=== PATIENT | male | born 1975 | race Caucasian/White ===

== ENCOUNTER 2025-01-06 23:27 | Emergency (ER) | payer OTHER, SELFPAY ==
--- NOTE | 2025-01-06 23:42 | XR_ITS ---
Examination: Right shoulder 2 views TECHNIQUE: AP internal rotation Y-view right shoulder 2 views Examination time: January 06, 2025 10:52 PM INDICATIONS: Patient fell today with injury to the shoulder shoulder pain. FINDINGS: Anterior subcoracoid shoulder dislocation. No fracture IMPRESSION: Anterior subcoracoid shoulder dislocation
--- NOTE | 2025-01-07 00:04 | PD.EDFALL ---
ED Fall Injury RME/HPI General Chief Complaint: Fall Stated Complaint: FELL, RIGHT SHOULDER INJURY Time Seen by Provider: 01/07/25 00:03 Arrival date/time: 01/06/25 23:27 RME / HPI RME / HPI Narrative: This section includes all my notes and documentations, including HPI, PE, and ED course. Andre Zimmerman MD HPI: 49yo male presents to the ED for a right shoulder injury. Patient states he was walking down some stairs when he fell and landed on his right shoulder. He denies any head strikes or loss of consciousness. Patient states he was unable to tolerate the pain, so he came in for evaluation. Patient denies any other injuries. No other complaints. ROS: All negative except as documented in HPI. Physical Exam: General: Alert and oriented. In severe pain. Eyes: Conjunctivae and lids clear. ENT: No nasal congestion. Neck: Supple. Heart: RRR. Lungs: No respiratory distress. Skin: Warm and dry. Neuro: Alert and oriented X 3. Right shoulder: Obvious deformity with severe tenderness and limited range of motion. Distally, no NVT injury. I reviewed all diagnostic test results. My interpretation of the right shoulder x-ray is anterior dislocation. At this point, diagnoses include dislocation of the right shoulder joint. Treatment here included Fentanyl, Midazolam, NS, and Toradol. Significant improvement after reduction, see procedure note. Based on my best medical judgment, made decision no further evaluation or treatment indicated at this time. Patient understands and agrees to the discharge instructions customized and printed, see below. Discharge Instructions from Dr. Zimmerman printed for you: 1. Wear the right arm sling until cleared by a doctor taking care of you. 2. Apply ice for 20 minutes every 2-3 hours today and tomorrow. 3. Ibuprofen 800 mg every 6-8 hours today and tomorrow to decrease inflammation then as needed. 4. Tylenol codeine for severe pain. 5. See a private doctor on 01/09/2025 for recheck and further care. Ask for a referral to see orthopedic surgeon. 6. Seek immediate medical care with worsening or with any concerns. Andre Zimmerman MD Related Data Previous Rx's ?Medication ?Instructions ?Recorded acetaminophen 300 mg-codeine 30 mg 2 tab PO Q8H PRN pain #20 tabs 01/07/25 tablet ibuprofen 800 mg tablet 800 mg PO Q8H PRN pain #30 tabs 01/07/25 Allergies Allergy/AdvReac Type Severity Reaction Status Date / Time No Known Allergies Allergy Verified 01/07/25 00:58 Review of Systems Review of Systems Systems Reviewed: All systems reviewed, normal except as documented Past Medical History Past Medical History CARDIAC: Negative Congestive Heart Failure RESPIRATORY: Negative Chronic Obstructive Pulmonary Disease (COPD) GENITOURINARY: Negative Renal Disease ENDOCRINE: Positive Diabetes Mellitus Type 2; Negative Diabetes Mellitus Type 1 Social History SMOKING STATUS: Current some day smoker ED Exam Narrative Physical exam: As noted in HPI. Course Quality Measures none Orders Category Date Time Status Saline [Insert IV] NOW Care 01/07/25 00:31 Active XR shoulder RT min 2V Stat Exams 01/06/25 23:42 Completed XR shoulder RT min 2V Stat Exams 01/07/25 01:30 Taken Ketorolac Inj [Toradol Inj] Med 01/07/25 02:11 Discontinued 30 mg IVP X1 ONE Midazolam Inj [Versed Inj] Med 01/07/25 01:35 Discontinued 1.5 mg IV X1 ONE Midazolam Inj [Versed Inj] Med 01/07/25 00:31 Discontinued 7.5 mg IV X1 ONE Sodium Chloride 0.9% 1000 ml [Ns] 1,000 ml Med 01/07/25 02:11 Active IV 999 mls/hr fentaNYL INJ [Sublimaze Inj] Med 01/07/25 00:31 Discontinued 100 mcg IVP X1 ONE Vital Signs Vital signs: Vital Signs Temperature 98.1 F 01/07/25 01:48 Pulse Rate 106 H 01/07/25 01:48 Respiratory Rate 15 01/07/25 01:48 Blood Pressure 155/96 H 01/07/25 01:48 Pulse Oximetry (%) 97 01/07/25 01:48 Oxygen Delivery Method Nasal Cannula 01/07/25 01:48 Oxygen Flow Rate 2 01/07/25 01:48 Procedures -ED Orthopedic Joint Reduction Joint #1: Time Out Performed: Yes Side: Right Joint Reduction Location: shoulder Analgesia: procedural sedation Technique used: direct manipulation Post-reduction neuro exam: intact and no change Post-reduction vascular: intact and no change Post Reduction X-Ray Obtained: Yes Post Reduction X-Ray Results: reduced Splint Applied: Yes Patient Tolerated Procedure: well and no complications Procedural Sedation Indication: fracture/dislocation reduction Presedation Evaluation: Patient is alert, awake, and oriented x3. He verbally consents to using sedation and having his dislocation reduced. Preparation: vehicle monitor technician applied, pulse oximeter, supplemental O2 applied, reversal agents at bedside, suction/airway equipment at bedside and IV secured Fentanyl: IV (100 mcg) Midazolam: IV (1.5 mg) Patient Tolerated Procedure: well and no complications Fall Patient data External records reviewed:: [facility] previous records (Per chart review, patient has no previous ED visits or admissions to this facility.) Clinical information provided by:: patient Social determinants that could affect healthcare access:: none Patient has the following chronic illnesses:: DM How is presenting disease/condition affected by chronic disease/condition?: uneffected by Evaluation data The following diagnostics were reviewed and interpreted by me:: radiology exam(s) Lab and/or radiology exams considered but not ordered:: none Interpretation Summary: Dislocation of the right shoulder joint Medications / Prescriptions Medications or Prescriptions considered but not ordered:: none Medication administrations:: Medication Administration History Sodium Chloride (Ns) 1,000 mls @ 999 mls/hr IV .Q1H1M ONE Stop: 01/07/25 03:11 Discontinued Medications Fentanyl Citrate (Fentanyl Cit Inj 50 Mcg/Ml Amp 2ml) 100 mcg IVP X1 ONE Stop: 01/07/25 00:32 Last Admin: 01/07/25 01:23 Dose: 100 mcg Documented By: EE Ketorolac Tromethamine (Ketorolac Inj 30 Mg/Ml Vial) 30 mg IVP X1 ONE Stop: 01/07/25 02:12 Midazolam HCl (Midazolam Inj 1 Mg/Ml Vial 2 Ml) 7.5 mg IV X1 ONE Stop: 01/07/25 00:32 Last Admin: 01/07/25 01:38 Dose: Not Given Documented By: EF Non-Admin Reason: Cancelled by Provider Midazolam HCl (Midazolam Inj 1 Mg/Ml Vial 2 Ml) 1.5 mg IV X1 ONE Stop: 01/07/25 01:36 Last Admin: 01/07/25 01:44 Dose: 1.5 mg Documented By: EE Fentanyl, Midazolam, NS, Toradol Consultations Consultation(s) initiated? (list below): No Diagnosis Fall Differential Diagnosis: dislocation of shoulder region and other (Right shoulder fracture/contusion/sprain/strain) Most likely diagnosis given after review of the tests above:: dislocation of the right shoulder joint Admission Indicated Admission indicated?: not indicated Explain why admission is indicated or not indicated:: No criteria for admission. Admission Request Was there a request for admission?: No Disposition Plan Disposition Plan: Discharge Discharge Attestation Discharge Attestation: The patient and all family members were given an opportunity to ask questions and understood the discharge instructions. Discharge instructions specifically effects, indications for sooner follow up or return to the emergency department, and the expected course of current diagnosis. Patient condition: Stable Discharge Plan Plan Patient Disposition: HOME (Self Care) Prescriptions/Referrals Prescriptions/Med Rec: New acetaminophen-codeine 300-30 mg tablet 2 tab PO Q8H MDD 6 PRN (Reason: pain) Qty: 20 0RF ibuprofen 800 mg tablet 800 mg PO Q8H PRN (Reason: pain) Qty: 30 0RF Referrals: No Primary/Family,Physician [Primary Care Provider] - In 1 week Problem List Clinical Impression: Dislocation of right shoulder joint Patient/Caregiver Discharge Instructions Discharge Activity: activity as tolerated Education Materials: ED Dislocation: Shoulder (Reduced) Additional Instructions: Discharge Instructions from Dr. Zimmerman printed for you: 1. Wear the right arm sling until cleared by a doctor taking care of you. 2. Apply ice for 20 minutes every 2-3 hours today and tomorrow. 3. Ibuprofen 800 mg every 6-8 hours today and tomorrow to decrease inflammation then as needed. 4. Tylenol codeine for severe pain. 5. See a private doctor on 01/09/2025 for recheck and further care. Ask for a referral to see orthopedic surgeon. 6. Seek immediate medical care with worsening or with any concerns. Print Language: Citizen Of [place] Stand Alone Forms: [facility] Award Info., Patient Portal Info Letter
[2025-01-07 00:57] VITALS: BMI 37.6
[2025-01-07] MEDS: fentaNYL CIT INJ 50 mCg/ML AMP 2ML 100 MCG IVP (01:23)
--- NOTE | 2025-01-07 01:30 | XR_ITS ---
Examination: Right shoulder 2 views TECHNIQUE: AP internal rotation Y view shoulder 2 views Exam date and time: 2024 at 0035 hours Comparison January 06, 2025 2252 hours INDICATIONS: Shoulder dislocation today post reduction films FINDINGS: Satisfactory reduction of shoulder dislocation. No fracture IMPRESSION: Satisfactory reduction shoulder dislocation
[2025-01-07] MEDS: MIDAZOLAM INJ 1 MG/ML VIAL 2 ML 1.5 MG IV (01:44)
[2025-01-07 01:48] VITALS: BP 155/96; PULSE 106; RESP 15; TEMP 36.7; O2SAT 97
[2025-01-07] MEDS: SODIUM CHLORIDE 0.9% 1000 ML 1,000 ML 999 ML IV (02:27)
[2025-01-07] MEDS: KETOROLAC INJ 30 MG/ML VIAL IVP (02:27)
[2025-01-07 03:37] VITALS: BP 125/67; PULSE 89; RESP 19; TEMP 32.1; O2SAT 99
== END 2025-01-07 03:42 | disposition home or self-care (01) ==
PROVIDERS: Emergency Provider Emergency Medicine
DX: S43.004A Unspecified dislocation of right shoulder joint, initial encounter (principal); W19.XXXA Unspecified fall, initial encounter; Y93.01 Activity, walking, marching and hiking
CPT/HCPCS: 23650; 73030; 96361; 96374; 99284; J1885; J2250; J3010; J7030

== ENCOUNTER 2025-03-15 09:00 | Outpatient (RCR) | payer OTHER, SELFPAY ==
--- NOTE | 2025-02-23 13:10 | PTNOTE_ITS ---
PT OP Initial Eval Patient Information Outpatient Physical Therapy Treatment Date: 02/23/25 Visit Reasons: Right shoulder pain Medical Diagnosis: Right Shoulder Dislocation Treatment Dx #1: Right Shoulder Pain Treatment Dx #2: Right Shoulder Mobility Deficits Start of Care: 02/23/25 Date of Onset: 01/06/25 Smoking Status Smoking Status: Never smoker Initial Assessment Subjective: Pt is a 49 y/o male reports of right shoulder dislocation 01/06/25 after he fell and hit the counter. Pt came to [facility]'s ER and relocated the shoulder. Pt still has pain (8/10) with limited ROM. Pt has limitation with gripping, lifting, chores, self care, cooking, cleaning, and performing work duties. Objective: Right Shoulder PROM Flexion: 90 deg Abduction: 75 deg ER: 10 deg IR: unable Right Shoulder AROM Flexion: 80 deg Abduction: 45 deg ER and IR: unable Right Shoulder MMTs: grossly 3-/5 Right Scapula MMTs: grossly 3-/5 Assessment: Pt demonstrate right shoulder mobility and strength deficits s/p shoulder dislocation leading to difficulty with ADLs. Pt will attempt physical therapy if pain persist Pt will be refer back to provider for further consultation. Short Term and Senior Qc Technician Goals 1) Increase right shoulder PROM WFL in 6 wks to prevent frozen shoulder 2) Increase right shoulder AROM WFL in 6 wks to be able to perform overhead motions 3) Increase right shoulder MMTs grossly 4-/5 in 6 wks to be able to perform lifting activities 4) Increase right scapula MMTs grossly to 3+/5 in 6 wks to be able to perform self care activities 5) Indep with HEP Treatment Plan 1) Manual Therapy 2) Therapeutic Activities 3) Therapeutic Exercises 4) Modalities (ice, heat) Frequency and Duration: 2 x wk for 6 wks Certification Dates: 02/23/25 to 05/26/25 Procedure Charges OP PT Eval Mod Complex 30 minutes: Yes
--- NOTE | 2025-03-01 09:22 | PT.ODAYNRPT ---
PT Outpatient Daily Note OP Daily Note Outpatient Physical Therapy Treatment Date: 03/01/25 Visit Reasons: Right shoulder pain Subjective: Pt's shoulder feels sore and ache. Pt mentioned he still has difficulty with self care and cooking Objective: Please see flow chart for list of ther ex performed Assessment: improved shoulder AAROM flexion and scaption. Post ice helped with pain Plan: Continue with PT Length of Time (minutes) of Treatment: 30 Minutes Procedure Charges Therapeutic Exercise 30 minutes: Yes
--- NOTE | 2025-03-03 09:27 | PT.ODAYNRPT ---
PT Outpatient Daily Note OP Daily Note Outpatient Physical Therapy Treatment Date: 03/03/25 Visit Reasons: Right shoulder pain Subjective: Pt's shoulder is sore but notice more arm movement Objective: Please see flow chart for list of ther ex performed Assessment: slowly progressing with shoulder AAROM in all plane. Pt is fatigue post PT session which ice helped Plan: Continue with PT Length of Time (minutes) of Treatment: 30 Minutes Procedure Charges Therapeutic Exercise 30 minutes: Yes
--- NOTE | 2025-03-07 10:26 | PT.ODAYNRPT ---
PT Outpatient Daily Note OP Daily Note Outpatient Physical Therapy Treatment Date: 03/07/25 Visit Reasons: Right shoulder pain Subjective: Pt reports R shoulder has been really sore and painful, feels it is getting worse. Objective: Please see flow sheet for ther ex list. Assessment: Pt demonstrates poor activity tolerance, delaying progression. Plan: Continue with pOC. Length of Time (minutes) of Treatment: 30 Minutes Procedure Charges Therapeutic Exercise 30 minutes: Yes
--- NOTE | 2025-03-09 09:51 | PT.ODAYNRPT ---
PT Outpatient Daily Note OP Daily Note Outpatient Physical Therapy Treatment Date: 03/09/25 Visit Reasons: Right shoulder pain Subjective: Pt reports R shoulder is really hurting today, as per pt he noticed these last few days pain has been worse. Objective: Please see flow sheet for ther ex list. Assessment: Pt continues to present in clinic with high pain delaying progression. Plan: Continue with POC. Length of Time (minutes) of Treatment: 30 Minutes Procedure Charges Therapeutic Exercise 30 minutes: Yes
--- NOTE | 2025-03-15 09:38 | PT.ODS1RPT ---
PT OP Progress/Discharge Note Date of Service: 03/15/25 Progress Note/DC Note Progress Note/Discharge Note: DC Note Patient Information Visit Reasons: Right shoulder pain Medical Diagnosis: Right Shoulder Dislocation Treatment Dx #1: Right Shoulder Mobility Deficits Treatment Dx #2: Right Shoulder Pain Service Continue Service or Discharge: Discharge Discharge Date: 03/15/25 Status Subjective: Pt's shoulder is the same and continues to hurt. Pt has limitation with overhead motions, lifting, chores, self care, cooking, cleaning, and performing recreational activities. Objective: Right Shoulder AROM Flexion: 90 deg Abduction: 50 deg ER and IR: unable due to pain Right Shoulder MMTs: grossly 3-/5 Right Scapula MMTs: grossly 3-/5 Assessment: Pt demonstrate right shoulder mobility and strength deficits due to pain leading to continue limitation with ADLs. Pt will no longer benefit from physical therapy due to minimal progress with ROM, strength, and stability. Recommend shoulder MRI to help rule in/out nature of pain. Pt was not instructed on HEP last session due to exercise increase pain; thank you for your referrals. Plan: D/C home with HEP and follow up with MD FOWLER Procedure Charges Therapeutic Exercise 30 minutes: Yes
== END 2025-03-18 23:59 | disposition home or self-care (01) ==
LOC: CPTX 09:00
PROVIDERS: PCP Physician Assistant; Referring Provider Physician Assistant; Visit Provider Physician Assistant
DX: M25.511 Pain in right shoulder (principal); S43.004D Unspecified dislocation of right shoulder joint, subsequent encounter; W19.XXXD Unspecified fall, subsequent encounter
CPT/HCPCS: 97110; 97162

== ENCOUNTER → 2025-05-30 | Outpatient (CLI) | payer BC, SELFPAY ==
--- NOTE | 2025-05-30 14:30 | XR_ITS ---
MRI shoulder, right, without contrast. Date and time: May 30, 2025 1531 hours INDICATIONS: Patient fell February 06, 2025 with injury to the shoulder, shoulder dislocation shoulder pain Technique: Multiple axial, sagittal and coronal sections of the shoulder have been obtained. Siemens high-resolution 1.5 Kourtney MRI scanner is utilized. Axial fat-suppressed sections, TR 2350, TE 18 T2-weighted coronal fat-saturated images, TR 3500, TE 7100 T1-weighted coronal images, TR 500, TE 15 T2-weighted sagittal fat-saturated images, TR 3500, TE 57 T1-weighted sagittal sections, TR 504, TE 13. Findings: Large full-thickness rotator cuff tear, greater than 4 cm Subscapularis insertion is intact. Subscapularis bursa is small. Long head of the biceps is in the bicipital groove. No definite tear of the biceps superior labral anchor is seen. Retraction of the musculotendinous junction of the rotator cuff is prominent. Distance between the acromium and humeral head is 1 mm Atrophy of the supraspinatus muscle is severe. Atrophy of the infraspinatus muscle is severe. Sagittal sections demonstrate a horizontal acromion. Acromioclavicular joint demonstrates moderate osteoarthritis. Osacromiale is not identified. Fraying and irregularity anterior superior labral margins. Bony glenoid fossa on the sagittal sections does not demonstrate osseous defect. Occult fracture or area of avascular necrosis is not seen. Acromioclavicular joint separation is not visible. Defect in the posterolateral margin of the humeral head is not seen Impression: Large full-thickness rotator cuff tear Fraying and irregularity anterior superior labral margins
== END | disposition home or self-care (01) ==
LOC: SMRI 14:20
PROVIDERS: PCP Physician Assistant; Referring Provider Physician Assistant; Visit Provider Physician Assistant
DX: S46.011A Strain of muscle(s) and tendon(s) of the rotator cuff of right shoulder, initial encounter (principal); W19.XXXA Unspecified fall, initial encounter; M25.811 Other specified joint disorders, right shoulder
CPT/HCPCS: 73221

== ENCOUNTER → 2025-06-28 | Outpatient (CLI) | payer BC, OTHER, SELFPAY ==
--- NOTE | 2025-06-28 09:25 | XR_ITS ---
Examination: Lateral chest 2 views Technique PA lateral chest 2 views Date and time: June 28, 2025 0945 hours INDICATIONS: Coughing beginning become ago. FINDINGS: Normal heart size. Lungs are clear. Osseous structures are intact. IMPRESSION: No active disease.
== END | disposition home or self-care (01) ==
PROVIDERS: PCP Physician Assistant; Referring Provider Physician Assistant; Visit Provider Physician Assistant
DX: R05.1 Acute cough (principal)
CPT/HCPCS: 71046